=== PATIENT | male | born 1940 | race Caucasian/White ===

== ENCOUNTER 2024-09-29 08:28 | Day surgery (SDC) | payer OTHER, SELFPAY ==
[2024-09-23 15:21] VITALS: BMI 24.1
--- NOTE | 2024-09-25 15:24 | HO.ANESPROP2 ---
HPI - Anesthesia Eval Consult details Narrative: 84yo M for Right Cataract Extraction IOL Insertion No previous cataract on record PMFSH Past Medical History Medical History Mixed hyperlipidemia HTN (hypertension) Surgical History Surgical History Hx of tooth extraction Hx of right inguinal hernia repair Social History Social History Patient Tobacco Use Status: Former Tobacco user Tobacco use type: Cigarette Use of substances other than those prescribed or required for medical reasons: No Spiritual Healthcare Practices: unknown Jehovah'S Witness Healthcare Practices: unknown Cultural Healthcare Practices: unknown Advance Directives: No [place] Directives on File: No Nutrition Risks: Surgical patient >75years Meds Allergies Allergy/AdvReac Type Severity Reaction Status Date / Time No Known Allergies Allergy Verified 09/29/24 09:49 Home Medications ?Medication ?Instructions ?Recorded ?Confirmed ?Last Taken ?Type aspirin 81 mg tablet,delayed 81 mg PO DAILY 09/23/24 09/29/24 Unknown History release atorvastatin 10 mg tablet 10 mg PO BEDTIME 09/23/24 09/29/24 Unknown History clonidine HCl 0.1 mg tablet 0.1 mg PO DAILY 09/23/24 09/29/24 Unknown History hydrochlorothiazide 25 mg tablet 25 mg PO DAILY 09/23/24 09/29/24 09/28/24 History lisinopril 40 mg tablet 40 mg PO DAILY 09/23/24 09/29/24 09/28/24 History sildenafil 50 mg tablet 50 mg PO DAILY PRN Sexual Activity 09/23/24 09/29/24 Unknown History Exam Height,Weight and Vital Signs: Height 5 ft 8 in Weight 72 kg Assessment and Plan Assessment Anesthesia Assessment: Chart Reviewed
[2024-09-29] MEDS: Tetracaine HCl/PF 0.5% Oph Sol 4 ML DROPS 1 DROP EYE-RIGHT (09:39)
[2024-09-29] MEDS: Cyclopentolate 1 % Ophth Sol 2 ML DRPBTL 1 DROP EYE-RIGHT ×3 (09:40→09:56)
[2024-09-29] MEDS: Tropicamide 1 % Ophth Sol 3 ML BTL 1 DROP EYE-RIGHT ×3 (09:42→09:58)
[2024-09-29] MEDS: Ketorolac Tromethamine 0.5% Op 5 ML DROPS 1 DROP EYE-RIGHT ×3 (09:44→10:00)
[2024-09-29] MEDS: Phenylephrine HCL 2.5% Oph SoL 2 ML BOTTLE 1 DROP EYE-RIGHT ×3 (09:46→10:02)
[2024-09-29 09:51] VITALS: BP 170/92; PULSE 72; RESP 16; TEMP 36.3; O2SAT 97; BMI 24.3
[2024-09-29] MEDS: Lactated Ringers 500 ML 50 ML IV (10:02)
--- NOTE | 2024-09-29 10:15 | P.CONAN_ITS ---
[facility] Past Medical History Medical History Mixed hyperlipidemia HTN (hypertension) Functional capacity: independent ambulation Family History Family history of problems with anesthesia: No Surgical History Surgical History Hx of tooth extraction Hx of right inguinal hernia repair History of Problems with Anesthesia: No Social History Social History Patient Tobacco Use Status: Former Tobacco user Tobacco use type: Cigarette Use of substances other than those prescribed or required for medical reasons: No Spiritual Healthcare Practices: unknown [employer] Healthcare Practices: unknown Cultural Healthcare Practices: unknown [place]ives: [place] [place]ives on File: No Nutrition Risks: Surgical patient >75years Meds Allergies Allergy/AdvReac Type Severity Reaction Status Date / Time No Known Allergies Allergy Verified 09/29/24 09:49 Active Medications: Current Medications Lactated Ringer's (Lr) 500 mls @ 50 mls/hr IV .Q10H [place] Stop: 09/29/24 19:44 Last Admin: 09/29/24 10:02 Dose: 50 mls/hr Povidone Iodine (Povidone Iodine 5 % Ophth Soln 30 Ml Bottle) 1 appl EYE-RIGHT PREOP PRN PRN Reason: Pre-Op Surgical Implant Prophy Home Medications ?Medication ?Instructions ?Recorded ?Confirmed ?Last Taken ?Type aspirin 81 mg tablet,delayed 81 mg PO DAILY 09/23/24 09/29/24 Unknown History release atorvastatin 10 mg tablet 10 mg PO BEDTIME 09/23/24 09/29/24 Unknown History clonidine HCl 0.1 mg tablet 0.1 mg PO DAILY 09/23/24 09/29/24 Unknown History hydrochlorothiazide 25 mg tablet 25 mg PO DAILY 09/23/24 09/29/24 09/28/24 History lisinopril 40 mg tablet 40 mg PO DAILY 09/23/24 09/29/24 09/28/24 History sildenafil 50 mg tablet 50 mg PO DAILY PRN Sexual Activity 09/23/24 09/29/24 Unknown History Exam Height,Weight and Vital Signs: Height 5 ft 8 in Weight 72.575 kg Last Vital Signs Temp 97.4 F 09/29/24 09:51 Pulse 72 09/29/24 09:51 Resp 16 09/29/24 09:51 BP 170/92 H 09/29/24 09:51 Pulse Ox 97 09/29/24 09:51 O2 Del Method Room Air 09/29/24 09:51 Airway Mallampati Class: II TM Dist: >3cm Neck ROM: Full Heart: RRR Lungs: CTA Assessment and Plan Assessment Anesthesia Assessment: Anesthesia Plan Discussed and Chart Reviewed Final Anesthetic Review Family History of Problems with Anesthesia: No History of Problems with Anesthesia: No NPO: Yes ASA Class: II Final Preanesthetic Review: Meds/Allgs Chart Reviewed, Consent Obtained/Reviewed and Anes Risks/Benef Reviewed Patient Risk: Low Procedure Risk: Low Anesthetic Plan Anesthetic Plan: MAC: Disposition: Standard PACU
--- NOTE | 2024-09-29 10:59 | MHC.SHP ---
Pre-Procedural Eval Section A - 24 Hr Update-Section A only Date of Service: 09/29/24 The patient is an INPATIENT: No Changes since office visit: No Cold of Flu in the past 2 weeks, No New Medical Problems, No Changes in Medication and No Patient answered all questions The patient has been examined within 24 hours of the surgical procedure. The History & Physical has been completed within 30 days and I have reviewed it.: Yes Section B - Complete if H&P > 30 days Chief Complaint: Age-related nuclear cataract, right eye Allergies: Allergies Allergy/AdvReac Type Severity Reaction Status Date / Time No Known Allergies Allergy Verified 09/29/24 09:49 Plan Diagnosis/Plan: Unchanged I have reviewed the history and physical and performed a pertinent physical examination on my patient. No changes have occurred unless specified. Time Spent With Patient Time: Total time managing care of this patient today ____ minutes.
--- NOTE | 2024-09-29 11:00 | P.PCNO_ITS ---
Ophthalmology Procedure Procedure Date of Service: 09/29/24 Ophthalmology Viscoelastic: Healon Duet Dual Pack Pro Ophthalmology Lenses: IOL Acrysof MP - MA60AC (21.5) Procedure Notes: PREOPERATIVE DIAGNOSIS: Decreased visual acuity right eye secondary to cataract POSTOPERATIVE DIAGNOSIS: Same PROCEDURE: Right cataract extraction with intraocular lens insertion SURGEON: Clarke Hope M.D. ANESTHESIA: Topical/MAC ESTIMATED BLOOD LOSS: None COMPLICATIONS: None After obtaining informed consent, the patient was brought to the operating room suite and placed in the supine position. After adequate sedation per anesthesia, topical drops of Tetracaine were given to the right eye. The eye was then prepped and draped in the usual sterile fashion. The operating room microscope was then positioned over the operative eye and a lid speculum placed. A paracentesis was created. Viscoelastic was then instilled into the anterior chamber. A three plane incision was then created temporally, utilizing a 2.85 mm keratome. Capsulotomy forceps were then utilized to create a circular tear capsulotomy. Hydrodissection and hydrodelineation were carried out until adequate mobilization of the nucleus occurred. Phacoemulsification was then utilized to remove the dense central nu cleus followed by removal of the cortical material utilizing the automated aspiration irrigation unit. Viscoelastic was instilled into the posterior capsular bag followed by placement of a posterior chamber intraocular lens without difficulty. The residual Viscoelastic was then removed utilizing the automated IA machine. The wound was checked and found to be watertight. The patient tolerated the procedure well and the lid speculum was removed. Intracameral injection of Vigamox 0.1 mL followed by a subtenon injection of Kenalog-40 0.2 mL were administered. The patient will be seen in the a.m.
[2024-09-29 11:23] VITALS: BP 156/88; PULSE 82; RESP 16; TEMP 36.4; O2SAT 99
--- NOTE | 2024-09-29 11:38 | HO.POSTANES ---
Post Anesthesia Evaluation Post Anesthesia Evaluation Date of Service: 09/29/24 Vital Signs: Vital Signs Temp Pulse Resp BP Pulse Ox O2 Del Method 09/29/24 11:23 97.5 F 82 16 156/88 H 99 Room Air 09/29/24 09:51 97.4 F 72 16 170/92 H 97 Room Air Anesthesia: Monitored Mental Status: Awake Pain Control: Satisfactory Nausea/Vomiting: None Hydration: Adequate Anesthesia-Related Issues: No Anes. Related Issues
== END 2024-09-29 11:28 | disposition home or self-care (01) ==
PROVIDERS: PCP Internal Medicine; Visit Provider Ophthalmology
PROC: (CPT 66985; principal; 2024-09-29 11:00)
DX: H25.11 Age-related nuclear cataract, right eye (principal); H52.4 Presbyopia; H35.09 Other intraretinal microvascular abnormalities; H18.413 Arcus senilis, bilateral; H11.153 Pinguecula, bilateral; I10 Essential (primary) hypertension; E78.2 Mixed hyperlipidemia; Z79.899 Other long term (current) drug therapy; Z79.82 Long term (current) use of aspirin; Z87.891 Personal history of nicotine dependence
CPT/HCPCS: 66984; J2250; J3301; V2630

== ENCOUNTER 2024-10-13 09:24 | Day surgery (SDC) | payer OTHER, SELFPAY ==
[2024-09-23 15:25] VITALS: BMI 24.1
--- OUTSIDE RECORDS SUMMARY | 2024-09-26 14:19 | XMS_ITS | Encounter Summary ---
Author Organization [facility] [place] [address] Care Team Providers Care Timber Girdler Name Role Phone Antolin Barlow MD Primary Care Provider [phone] Reason for Referral * Consultation (Routine) - Authorized Specialty Diagnoses / Procedures Referred By Igor trevizo Referred To Contact Dermatology Diagnoses Skin lesion of right external ear Cornell Berger MD [address] [place] [address] Phone: tel: fax: [place] [address] Phone: tel: fax: Referral ID Status Reason Start Date Expiration Date Visits Requested Visits Authorized [id number] Authorized Specialty Services Required 09/12/2024 09/12/2025 1 1 Reason for Visit * Reason Comments Pre-op Exam Cataract surgey Encounter Details Date Type Department Care Team ([facility] Contact Info) Description 09/12/2024 10:00 AM EST Consult Adult Medicine [address] [phone] Cornell Berger MD [address] [place] [address] Preop cardiovascular exam (Primary Dx); Benign essential hypertension; Skin lesion of right external ear; Need for tetanus, diphtheria, and acellular pertussis (Tdap) vaccine Social History Tobacco Use Types Packs/Day Years Used Date Smoking Tobacco: Former Cigarettes Q uit: 07/30/1984 Smokeless Tobacco: Never Tobacco Cessation:Counseling Given: Not Answered Alcohol Use Standard Drinks/Week Comments Yes 0 (1 standard drink = 0.6 oz pur e alcohol) Sex and Gender Information Value Date Recorded Sex Assigned at Not on file Legal Sex Male 10:19 AM EST Gender Identity Not on file Sexual Orientation Not on file documented as of this encounter Last Filed Vital Signs Vital Sign Reading Time Taken Comments Blood Pressure 139/67 09/12/2024 9:53 AM EST Pulse 84 09/12/2024 9:53 AM EST Temperature 36.5 ??C (97.7 ??F) 09/12/2024 9:53 AM ES T Respiratory Rate 14 09/12/2024 9:53 AM EST Oxygen Saturation - - Inhaled Oxygen Concentration - - Weight 72 kg (158 lb 12.8 oz) 09/12/2024 9:53 AM EST Height 172.7 cm (5' 8 ) 09/12/2024 9:53 AM EST Body Mass Index 24.15 09/12/2024 9:53 AM EST documented in this encounter Patient Instructions * Attachments The following attachments cannot be sent through Care Everywhere. * ERAS: Enhanced Recovery After Surgery: After Surgery: General Info (Nicaraguan) documented in this encounter Ordered Prescriptions Prescription Sig Dispense Quantity Refills Last Filled Start Date End Date lisinopril (PRINIVIL,ZESTRIL) 40 mg tabletIndications: Benign essential hypertension Take 1 tablet (40 mg total) by mouth 1 (one) time each day. 90 each 1 09/12/2024 03/11/2025 documented in this encounter Progress Notes * Cornell Berger MD - 09/12/2024 10:00 AM ESTAssociated Problem(s): Benign essential hypertension BP is stable at 139/67. His goal BP is < 150/90 given lack of CKD or CAD Continue clonidine 0.1 mg, lisinopril 40 mg and hydrochlorothiazide 25 mg. Lisinopril use is likely causing a mild intermittent dry cough but he does not want to switch to a different medication at this time Orders: lisinopril (PRINIVIL,ZESTRIL) 40 mg tablet; Take 1 tablet (40 mg total) by mouth 1 (one) time each day. * Cornell Berger MD - 09/12/2024 10:00 AM EST Images from the original note were not included. Patient Education High Blood Pressure: Care Instructions Overview It's normal for blood pressure to go up and down throughout the day. But if it stays up, you have high blood pressure. Another name for high blood pressure is hypertension. For diagnosis, the top number may be 130 to 140 or higher. The bottom number may be 80 to 90 or higher. Despite what a lot of people think, high blood pressure usually doesn't cause headaches or make youfeel dizzy or lightheaded. It usually has no symptoms. But it does increase your risk of stroke, heart attack, and other problems. You and your doctor will talk about your risks of these problems based on your blood pressure. Your doctor will give you a goal for your blood pressure. Your goal will be based on your health and your age. Lifestyle changes, such as eating healthy and being active, are always important to help lower blood pressure. You might also take medicine to reach your blood pressure goal. Follow-up care is a martinez part of your treatment and safety. Be sure to make and go to all appointments, and call your doctor if you are having problems. It's also a good idea to know your test resultsand keep a list of the medicines you take. How can you care for yourself at home? Medical treatment If you stop taking your medicine, your blood pressure will go back up. You may take one or more types of medicine to lower your blood pressure. Be safe with medicines. Take your medicine exactly as prescribed. Call your doctor if you think you are having a problem with your medicine. Talk to your doctor before you start taking aspirin every day. Aspirin can help certain people lower their risk of a heart attack or stroke. But taking aspirin isn't right for everyone, because it can cause serious bleeding. See your doctor regularly. You may need to see the doctor more often at first or until your blood pressure comes down. If you are taking blood pressure medicine, talk to your doctor before you take decongestants or anti-inflammatory medicine, such as ibuprofen. Some of these medicines can raise blood pressure. Learn how to check your blood pressure at home. Lifestyle changes Stay at a healthy weight. This is especially important if you put on weight around the waist. Losing even 10 pounds can help you lower your blood pressure. If your doctor recommends it, get more exercise. Walking is a good choice. Bit by bit, increase theamount you walk every day. Try for at least 30 minutes on most days of the week. You also may want to swim, bike, or do other activities. Avoid or limit alcohol. Talk to your doctor about whether you can drink any alcohol. Try to limit how much sodium you eat to less than 2,300 milligrams (mg) a day. Your doctor may ask you to try to eat less than 1,500 mg a day. Eat plenty of fruits (such as bananas and oranges), vegetables, legumes, whole grains, and low-fat dairy products. Lower the amount of saturated fat in your diet. Saturated fat is found in animal products such as milk, cheese, and meat. Limiting these foods may help you lose weight and also lower your risk for heart disease. Do not smoke. Smoking increases your risk for heart attack and stroke. If you need help quitting, talk to your doctor about stop-smoking programs and medicines. These can increase your chances of quitting for good. When should you call for help? Call 911 anytime you think you may need emergency care. This may mean having symptoms that suggest that your blood pressure is causing a serious heart or blood vessel problem. Your blood pressure maybe over 180/120. For example, call 911 if: You have symptoms of a heart attack. These may include: Chest pain or pressure, or a strange feeling in the chest. Sweating. Shortness of breath. Nausea or vomiting. Pain, pressure, or a strange feeling in the back, neck, jaw, or upper belly or in one or both shoulders or arms. Lightheadedness or sudden weakness. A fast or irregular heartbeat. You have symptoms of a stroke. These may include: Sudden numbness, tingling, weakness, or loss of movement in your face, arm, or leg, especially on only one side of your body. Sudden vision changes. Sudden trouble speaking. Sudden confusion or trouble understanding simple statements. Sudden problems with walking or balance. A sudden, severe headache that is different from past headaches. You have severe back or belly pain. Do not wait until your blood pressure comes down on its own. Get help right away. Call your doctor now or seek immediate care if: Your blood pressure is much higher than normal (such as 180/120 or higher), but you don't have symptoms. You think high blood pressure is causing symptoms, such as: Severe headache. Blurry vision. Watch closely for changes in your health, and be sure to contact your doctor if: Your blood pressure measures higher than your doctor recommends at least 2 times. That means the top number is higher or the bottom number is higher, or both. You think you may be having side effects from your blood pressure medicine. Where can you learn more? Scan the [employer] Mobile code or Go to [email or web address] Enter X567 in the search box to learn more about High Blood Pressure: Care Instructions. Current as of: May 22, 2023 Content Version: 14.2 ?? 2023 [facility] [employer]. Care instructions adapted under license by your healthcare professional. If you have questions about a medical condition or this instruction, always ask your healthcare professional. [employer] disclaims any warranty or liability for your use of this information. * Kristi Yeboah MA - 09/12/2024 10:00 AM EST Have you fallen in the past year? no. Are you worried about falling? no. . Depression Screening Will the patient answer the depression risk questions?: Yes Over the last 2 weeks, how often have you been bothered by little interest or pleasure in doing things?: Not at all Over the last 2 weeks, how often have you been bothered by feeling down, depressed, or hopeless?: Not at all Depression Risk: 0 * Cornell Berger MD - 09/12/2024 10:00 AM EST Images from the original note were not included. Pre-Operative Note Subjective Michael Lagunas is a 84 y.o. male presenting for Pre-Operative Visit. Surgery/Procedure: cataracts extraction Surgeon: Dr. Clarke Barth Planned anesthesia is Unknown Date of procedure: 09/29/2024 and 10/13/2024 respectively Location of procedure: High Risk Pre-Operative Medical Conditions: As detailed in the problem list and diagnosis' at visittoday. History of DVT/PE in the past []Yes [x]No History of VRE, Hepatitis C, MRSA []Yes [x]No Risk Factors: [x] No []Yes Asthma [x] No []Yes Coronary Artery Disease [x] No []Yes Renal Insufficiency [x] No []Yes Diabetes Mellitus Bleeding Risk: [x] No []Yes History of Severe Bleeding or Easy Bruising [x] No []Yes Difficulty with Bleeding after Loss of Teeth or Dental Extractions [x] No []Yes Difficulty with Bleeding after previous Surgery Medication Review: [] Not Taking [x] Taking Aspirin [x] Not Taking [] Taking Blood Thinners Anesthesia Risk: [x] No []Yes History of Problems with Anesthesia [x] No []Yes History of Sleep Apnea Functional capacity [] Can take care of self, such as eat, dress, or use the toilet (1 MET) [] Can walk up a flight of steps or a hill or walk on level ground at 3 to 4 mph (4 METs) [x] Can do heavy work around the house, such as scrubbing floors or lifting or moving heavy furniture, or climb two flights of stairs (between 4 and 10 METs) [] Can participate in strenuous sports such as swimming, singles tennis, football, basketball, and skiing (>10 METs) This is my first visit with patient. Medications and chronic medical problems are as detailed in the note Hypertension: continues on clonidine 0.1 mg, lisinopril 40 mg and hydrochlorothiazide 25 mg. Notes intermittent dry cough for about 5 or 6 years likely related to the lisinopril. He was offered to switch to a different medication (losartan) but declined at this time. His blood pressure is stable at 139/70. The patient has a history of: [] easy bruising [] easy bleeding [] bleeding into joints [] bleeding into muscles [] frequent nosebleeds [] bleeding with the loss of teeth or dental extractions [] bleeding with previous surgery or injury [] family history of bleeding disorders [x] no history of bleeding problems The patient has: [] coronary artery disease [] history of a recent myocardial infarction [] unstable angina [] history of a drug eluding cardiac stent [] CHF [] cardiac arrhythmias [] valvular heart disease [] history of CVA [] renal failure [] asthma [] sleep apnea [] diabetes that requires insulin to treat [x] no significant medical history The patient has: [] a defibrillator/pacemaker [] a pain pump [x] no implantable device The patient can: [] take care of self, such as eat, dress, or use the toilet (1 MET) [] walk up a flight of steps or a hill or walk on level ground at 3 to 4 mph (4 METs) [x] do heavy work around the house such as scrubbing floors or lifting or moving heavy furniture orclimb two flights of stairs or walk four blocks (between 4 and 10 METs) [] participate in strenuous sports such as swimming, singles tennis, football, basketball, and skiing (>10 METs) The patient has: [] a history of difficulty with anesthesia [] a history of excessive postop nausea and vomiting [] a history of sensitivity to narcotics [] a history of sleep apnea [] a history of family history of malignant hyperthermia or adverse reaction to anesthesia [x] no history of difficulty with anesthesia, excessive postop nausea and vomiting, sensitivity to narcotics, sleep apnea or family history of malignant hyperthermia or sensitivity to anesthesia. Comprehensive Medical and Social History: Patient Active Problem List Diagnosis Benign essential hypertension Erectile dysfunction Mixed hyperlipidemia Right inguinal hernia No Known Allergies Current Outpatient Medications Medication Instructions aspirin 81 mg EC tablet Take 81 mg by mouth daily. atorvastatin (LIPITOR) 10 mg, oral, Nightly cloNIDine (CATAPRES) 0.1 mg, oral, Daily hydroCHLOROthiazide (HYDRODIURIL) 25 mg, oral, Daily lisinopril (PRINIVIL,ZESTRIL) 40 mg, oral, Daily sildenafiL (VIAGRA) 50 mg tablet Take 1 tab by mouth one hour prior to sexual activity . Only take one tablet in 24 hours Past Medical History: Diagnosis Date Essential hypertension, benign 11/08/2005 DX:Essential hypertension, benign Mixed hyperlipidemia 11/08/2005 DX:Mixed hyperlipidemia Past Surgical History: Procedure Laterality Date HERNIA REPAIR Right 09/18/2013 PROCEDURE: HISTORICAL HERNIA REPAIR/ING MULTIPLE TOOTH EXTRACTIONS PROCEDURE: HISTORICAL DENTAL EXTRACTION Social History Socioeconomic History Marital status: Spouse name: None Number of children: None Years of education: None Highest education level: None Occupational History None Tobacco Use Smoking status: Former Current packs/day: 0.00 Types: Cigarettes Quit date: 07/30/1984 Years since quittin.1 Smokeless tobacco: Never Substance and Sexual Activity Alcohol use: Yes Drug use: No Sexual activity: None Other Topics Concern None Social History Narrative None Family History Problem Relation Name Age of Onset Hypertension Mother 2006, age 92 Other (Other: coronary bypass) Father , age 88 Cataracts Sister Blindness Neg Hx Glaucoma Neg Hx Macular degeneration Neg Hx Strabismus Neg Hx Immunization History Administered Date(s) Administered Influenza trivalent, 0.5mL (Fluad) 65yo and older 05/10/2016, 05/15/2018, 05/16/2019, 04/26/2021, 04/18/2022 Influenza trivalent, 0.5mL, preservative free (Fluarix; FluLaval; Fluzone) ages 6mo and older (Afluria) 3 years and older 05/30/2007, 05/15/2008, 05/03/2011, 05/06/2012, 05/30/2013, 06/21/2014, 05/06/2015 Moderna SARS-CoV-2 COVID-19, mRNA, LNP-S, preservative free 09/29/2020, 10/29/2020, 07/19/2021 Pneumococcal conjugate 13 valent (Prevnar 13, PCV13) 2mo and older 11/05/2015 Pneumococcal polysaccharide 23 valent (Pneumovax 23) 2yo and older 05/30/2007 Td Tetanus diptheria (Tdvax) 7yo and older 10/29/2007 Tdap Tetanus diptheria acellular pertussis (Boostrix; Adacel) 7yo and older 11/03/2013 Zoster Live 05/05/2013 Review of Systems Respiratory: Negative for apnea, shortness of breath and wheezing. Cardiovascular: Negative for chest pain and leg swelling. Gastrointestinal: Negative for abdominal pain, nausea and vomiting. Neurological: Negative for dizziness. IMAGING/LABORATORY: EKG: No results found for this or any previous visit (from the past 4464 hours). Objective BP 139/67 Pulse 84 Temp 36.5 ??C (97.7 ??F) (Temporal) Resp 14 Ht 1.727 m (68 ) Wt 72 kg (158 lb 12.8 oz) BMI 24.15 kg/m?? Physical Exam Constitutional: General: He is not in acute distress. Appearance: Normal appearance. He is normal weight. HENT: Head: Normocephalic and atraumatic. Nose: Nose normal. Mouth/Throat: Mouth: Mucous membranes are moist. Pharynx: No oropharyngeal exudate or posterior oropharyngeal erythema. Eyes: Extraocular Movements: Extraocular movements intact. Conjunctiva/sclera: Conjunctivae normal. Pupils: Pupils are equal, round, and reactive to light. Cardiovascular: Rate and Rhythm: Normal rate and regular rhythm. Pulses: Normal pulses. Heart sounds: Normal heart sounds. No murmur heard. Pulmonary: Effort: Pulmonary effort is normal. No respiratory distress. Breath sounds: Normal breath sounds. Abdominal: Palpations: Abdomen is soft. Tenderness: There is no abdominal tenderness. Musculoskeletal: Cervical back: Neck supple. Right lower leg: No edema. Left lower leg: No edema. Lymphadenopathy: Cervical: No cervical adenopathy. Skin: Comments: White, scaly small macule located on the right external ear Neurological: General: No focal deficit present. Mental Status: He is alert and oriented to person, place, and time. Gait: Gait normal. Psychiatric: Mood and Affect: Mood normal. Behavior: Behavior normal. Assessment & Plan Preop cardiovascular exam Revised Cardiac Risk Index (RCRI) [] The patient is having a high-risk type of surgery (examples include suprainguinal vascular, openintraperitoneal or intrathoracic). [] They do have a history of ischemic heart disease (history of IN or a positive exercise test, current complaint of chest pain considered to be secondary to myocardial ischemia, use of nitrate therapy, or ECG with pathological Q waves). [] They do have a history of CHF (Pulmonary edema, bilateral rales or S3 gallop; paroxysmal nocturnal dyspnea; chest x-ray (CXR) showing pulmonary vascular redistribution). [] They do have a history of cerebrovascular disease(Prior transient ischemic attack (TIA) or stroke). [] They do have diabetes mellitus requiring treatment with insulin. [] They do have a preoperative serum creatinine >2.0 mg/dL. [x] No risk factors The patient has a RCRI score of 0, indicative of a 3.9% risk of major cardiac event. The patient was advised to take medications as prescribed He has no contraindications to low risk cataract surgery Benign essential hypertension BP is stable at 139/67. His goal BP is < 150/90 given lack of CKD or CAD Continue clonidine 0.1 mg, lisinopril 40 mg and hydrochlorothiazide 25 mg. Lisinopril use is likely causing a mild intermittent dry cough but he does not want to switch to a different medication at this time Orders: lisinopril (PRINIVIL,ZESTRIL) 40 mg tablet; Take 1 tablet (40 mg total) by mouth 1 (one) time each day. 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 States he has had lesion of the ear frozen before. This was about 2 years ago Orders: Ambulatory referral to Dermatology; Future Need for tetanus, diphtheria, and acellular pertussis (Tdap) vaccine Orders: Tdap Tetanus diptheria acellular pertussis (Boostrix; Adacel) 7yo and older Advised to complete pending blood work ordered by care team on 09/02/24 at visit Advised to obtain updated COVID-vaccine and shingles vaccine at his local pharmacy. Cornell Berger MD ADULT MEDICINE [address] [phone] * Kristi Yeboah MA - 09/12/2024 10:00 AM EST The patient acknowledges that they will be receiving the Tdap (Brand Name Boostrix or Adacel) (Tetanus/Diptheria/Pertussis) vaccine: yes Immunization tab reviewed: It has been at least 9 years since last Tdap vaccine administration. Ifless than 9 years, provider notified. yes Exception: patients should receive a Tdap with each , preferably during the 3rd trimester. Denies allergy or reaction to previous Tetanus, Diptheria or pertussis vaccination: yes Denies history of Guillain [place] Syndrome.or any type of seizure disorder. yes Patient made aware that they may experience pain/swelling at the site after receiving a Tetanus or Diptheria vaccine. yes Acknowledges reviewing the VIS for Tdap vaccine (copy made available): yes Denies moderate or severe illness or fever of >100 degrees F: yes Patient agrees to wait in the office for 20 minutes after receiving the injection: { yes Tdap vaccine administered IM. See Imm/Inj tab Electronically signed by: Kristi Yeboah MA 09/12/2024 10:23 AM EST documented in this encounter Plan of Treatment Upcoming Encounters Date Type Department Care Team (Late st Contact Info) Description 10/07/2024 10:00 AM EDT Consult Adult Medicine [address] [phone] Antolin Barlow MD [address] [place] [phone] 03/31/2025 11:30 AM EDT Office Visit Adult Medicine [address] [phone] Antolin Barlow MD [address] [place] [id number] Scheduled Referrals Name Type Priority Associated Diagnoses Order Schedule Ambulatory referral to Dermatology Outpatient Referral Routine Skin lesion of right external ear 1 Occurrences starting 09/12/2024 until 09/12/2025 documented as of this encounter Visit Diagnoses Diagnosis Preop cardiovascular exam- Primary Pre-operative cardiovascular examination Benign essential hypertension Essential hypertension, benign Skin lesion of right external ear Need for tetanus, diphtheria, and acellular pertussis (Tdap) vaccine documented in this encounter Discontinued Medications Medication Sig Discontinue Reason Start Date End Da te lisinopril (PRINIVIL,ZESTRIL) 40 mg tablet Take 1 tablet (40 mg total) by mouth 1 (one) time each day. Reorder 09/02/2024 09/12/2024 documented as of this encounter Orders Immunization/Injection Count Last Ordered Date First Ordered Date TDAP TETANUS DIPTHERIA ACELL ULAR PERTUSSIS (BOOSTRIX; ADACEL) 7YO AND OLDER 1 09/12/2024 documented in this encounter Additional Health Concerns Assessment Noted Time PHQ-9 Depression Total Score: 0 09/12/19 25 9:52 AM EST documented as of this encounter Care Teams Timber Girdler Relationship Specialty Start Date End Date Antolin Barlow MD [address] [place] [id number] PCP - General Internal Medicine 04/23/20 documented as of this encounter
--- OUTSIDE RECORDS SUMMARY | 2024-09-26 14:19 | XMS_ITS | Clinical Summary ---
Author Organization [facility] Address [address] [place] [phone] Phone Care Team Providers Care Project Manager Industrial Name Role Phone Antolin Barlow MD Primary Care Provider [phone] Allergies No known active allergies Medications sildenafiL (VIAGRA) 50 mg tablet Take 1 tab by mouth one hour prior to sexual activity . Only take one tablet in 24 hours 07/13/20 23 Active aspirin 81 mg EC tablet Take 81 mg by mouth daily. Active hydroCHLOROthiaz joanie (HYDRODIURIL) 25 mg tablet Take 1 tablet (25 mg total) by mouth 1 (one) time each day. 90 tablet 1 09/02/19 25 Active cloNIDine (CATAPRES) 0.1 mg tablet Take 1 tablet (0.1 mg total) by mouth 1 (one) time each day. 90 tablet 1 09/02/19 25 Active atorvastatin (LIPITOR) 10 mg tablet Take 1 tablet (10 mg total) by mouth at bedtime. 90 tablet 1 09/02/19 25 Active lisinopril (PRINIVIL,ZESTRI L) 40 mg tabletIndication s:Benign essential hypertension Take 1 tablet (40 mg total) by mouth 1 (one) time each day. 90 each 1 09/12/19 25 025 Active atorvastatin (LIPITOR) 10 mg tablet Take 1 Tablet by mouth at bedtime. 01/22/20 24 025 Discontinued(Re order) hydroCHLOROthiaz joanie (HYDRODIURIL) 25 mg tablet Take 1 Tablet by mouth daily. 01/22/20 24 025 Discontinued(Re order) cloNIDine (CATAPRES) 0.1 mg tablet Take 1 Tablet by mouth daily. 01/22/20 24 025 Discontinued(Re order) lisinopriL (PRINIVIL,ZESTRI L) 30 mg tablet Take 1 tablet (30 mg total) by mouth 1 (one) time each day. 30 tablet 08/06/19 25 025 Discontinued lisinopril (PRINIVIL,ZESTRI L) 40 mg tablet Take 1 tablet (40 mg total) by mouth 1 (one) time each day. 30 each 1 09/02/19 25 025 Discontinued(Re order) Active Problems Problem Noted Date Diagnosed Date Erectile dysfunction 11/12/2017 Right inguinal hernia 05/26/2013 Benign essential hypertension 11/08/2005 Assessment & Plan (09/12/2024 10:32 AM EST): BP is stable at 139/67. His goal [...] by mouth 1 (one) time each day. Mixed hyperlipidemia 11/08/2005 Encounters Date Type Department Care Team Description 09/12/2024 10:00 AM EST Consult Adult Medicine [address] [phone] Cornell Berger MD Preop cardiovascular exam (Primary Dx); Benign essential hypertension; Skin lesion of right external ear; Need for tetanus, diphtheria, and acellular pertussis (Tdap) vaccine 09/09/2024 Telephone Adult Medicine [address] [phone] Antolin Barlow MD Pre-op Visit (Pre Op Reschedule) 09/02/2024 11:00 AM EST Office Visit Adult Medicine [address] [phone] Ella Garcia PA Benign essential hypertension (Primary Dx); Mixed hyperlipidemia 08/22/2024 Telephone Adult Medicine [address] [phone] Antolin Barlow MD Referral (Ophthalmology ) 07/02/2024 Telephone Adult Medicine [address] [phone] Antolin Barlow MD reff from Last 3 Months Immunizations Name Administration Dates Next Due Influenza trivalent, 0.5mL ( Fluad) 65yo and older 04/18/2022,04/26/2021,05/16/2019,05/15,05/10/2016 Influenza trivalent, 0.5mL, preservative free (Fluarix; FluLaval; Fluzone) ages 6mo and older (Afluria) 3 years and older 05/06/2015,06/21/2014,05/30/2013,05/06,05/03/2011,05/15/2008,05/30/2007 Pneumococcal conjugate 13 va lent (Prevnar 13, PCV13) 2mo and older 11/05/2015 Pneumococcal polysaccharide 23 valent (Pneumovax 23) 2yo and older 05/30/2007 Td Tetanus diptheria (Tdvax) 7yo and older 10/29/2007 Tdap Tetanus diptheria acell ular pertussis (Boostrix; Adacel) 7yo and older 09/12/2024,11/03/2013 Zoster Live 05/05/2013 Surgical History Surgery Date Site/Laterality Comments MULTIPLE TOOTH EXTRACTIONS PROCEDURE: HISTORICAL DENTAL EXTRACTION HERNIA REPAIR 09/18/2013 Right PROCEDURE: HISTORICAL HERNIA REPAIR/ING Medical History Medical History Date Comments Mixed hyperlipidemia 11/08/2005 DX:Mixed hy perlipidemia Essential hypertension, benign 11/08/2005 D X:Essential hypertension, benign Family History Medical History Relation Name Comments Other: coronary bypass Father decea sed, age 88 Hypertension Mother 2006, age 92 Cataracts Sister Blindness Neg Hx Glaucoma Neg Hx Macular degeneration Neg Hx Strabismus Neg Hx Relation Name Status Comments Father Mother Sister Social History Tobacco Use Types Packs/Day Years [...] on file Sexual Orientation Not on file Obstetrics History Last Filed Vital Signs Vital Sign Reading Time Taken Comments Blood Pressure 139/67 09/12/2024 9:53 AM EST Pulse 84 09/12/2024 9:53 AM EST Temperature 36.5 ??C (97.7 ??F) 09/12/2024 9:53 AM ES T Respiratory Rate 14 09/12/2024 9:53 AM EST Oxygen Saturation 98% 09/02/2024 10:53 AM EST Inhaled Oxygen Concentration - - Weight 72 kg (158 lb 12.8 oz) 09/12/2024 9:53 AM EST Height 172.7 cm (5' 8 ) 09/12/2024 9:53 AM EST Body Mass Index 24.15 09/12/2024 9:53 AM EST Plan of Treatment Upcoming Encounters Date Type Department Care Team (Late st Contact Info) Description 10/07/2024 10:00 AM EDT Consult Adult Medicine [address] [phone] Antolin Barlow MD [address] [place] [phone] 03/31/2025 11:30 AM EDT Office Visit Adult Medicine [address] [phone] Antolin Barlow MD [address] [place] [address] [phone] Health Maintenance Due Date Last Done Comments IPV Vaccines (2 of 3 - Adult catch-up series) 08/31/1961 08/03/1963 Zoster Vaccines (2 of 3) 06/30/2013 05/05/2013 Medicare Annual Wellness Visit 07/08/2022 Social Influencers of Health Screening 07/08/2022 COVID-19 Vaccine ( season) 2024 07/19/2021, 10/29/2020, 09/29/2020 Depression Screening 09/12/2025 09/12/2024 Falls Risk Assessment 09/12/2025 09/12/2024 Hypertension/CHF/CAD Annual BMP Blood Test 09/15/2025 09/15/2024, 01/23/2024 Cholesterol Screening (Lipid Panel) 09/15/2029 09/15/2024, 01/23/2024 DTaP,Tdap,and Td Vaccines (5 - Td or Tdap) 09/12/2034 09/12/2024, 11/03/2013, 10/29/2007, Additional history exists Hepatitis A Vaccines Aged Out 10/31/1997, 04/06/19 97 No longer eligible based on patient's age to complete this topic MMR Vaccines Aged Out 06/22/1998 No longer eligi ble based on patient's age to complete this topic Pneumococcal Vaccine: 50+ Years Completed 11/05/2015, 05/30/2007 RSV Immunization Patients 60+ Years Old Completed 08/07/2023 Influenza Vaccine Completed 05/02/2024, , 04/18/2022, Additional history exists HIB Vaccines Aged Out No longer eligi ble based on patient's age to complete this topic HPV Vaccines Aged Out No longer eligi ble based on patient's age to complete this topic Hepatitis B Vaccines Aged Out No long er eligible based on patient's age to complete this topic Meningococcal ACWY Vaccine Aged Out N o longer eligible based on patient's age to complete this topic Meningococcal B Vacine Aged Out No lo nger eligible based on patient's age to complete this topic RSV Immunization Patients Under 20 months Aged Out No longer eligible based on patient's age to complete this topic Varicella Vaccines Aged Out No longer eligible based on patient's age to complete this topic Procedures Procedure Name Priority Date/Time Associated Diagnosis Comments LIPID PANEL WITH REFLEX TO DIRECT LDL Routine 09/15/2024 9:59 AM EST Mixed hyperlipidemia BASIC METABOLIC PANEL Routine 09/15/2024 9:59 AM EST Benign essential hypertension Mixed hyperlipidemia from Last 3 Months Results * Lipid panel with reflex to direct LDL (09/15/2024 9:59 AM EST) Cholesterol 142 0 - 200 mg/dL LAB CHEMISTRY METHOD 09/15/2024 12:33 PM EST [facility] Triglycerides 61 0 - 150 mg/dL LAB CHEMISTRY METHOD 09/15/2024 12:33 PM EST [facility] HDL 57 >=40 mg/dL LAB CHEMISTRY METHOD 09/15/2024 12:33 PM EST [facility] LDL Calculated 73 0 - 100 mg/dL LAB CHEMISTRY METHOD 09/15/2024 12:33 PM [facility] VLDL Cholesterol Dave 12.2 mg/dL LAB CHEMISTRY METHOD 09/15/2024 12:33 PM [facility] Non HDL Chol. (LDL+VLDL) 85 <145 mg/dL LAB CHEMISTRY METHOD 09/15/2024 12:33 PM EST [facility] Chol/HDL Ratio 2.5 0.0 - 4.4 LAB CHEMISTRY METHOD 09/15/2024 12:33 PM [facility] Blood Venous blood specimen / Unknown Venipuncture / Unknown 09/15/2024 9:59 AM EST 09/15/2024 9:59 AM EST us Ella VALADEZ LAB BLOOD ORDERABLES Fi nal Result [facility] [address] [place] [address], [place] [phone] * Basic metabolic panel (09/15/2024 9:59 AM EST) Sodium 133 133 - 145 mmol/L LAB CHEMISTRY METHOD 09/15/2024 12:33 PM [facility] Potassium 4.5 3.5 - 5.5 mmol/L LAB CHEMISTRY METHOD 09/15/2024 12:33 PM [facility] Chloride 98 96 - 110 mmol/L LAB CHEMISTRY METHOD 09/15/2024 12:33 PM [facility] CO2 31 21 - 32 mmol/L LAB CHEMISTRY METHOD 09/15/2024 12:33 PM [facility] Anion Gap 4 3 - 11 LAB CHEMISTRY METHOD 09/15/2024 12:33 PM [facility] Glucose 91 70 - 100 mg/dL LAB CHEMISTRY METHOD 09/15/2024 12:33 PM [facility] BUN 15 5 - 25 mg/dL LAB CHEMISTRY METHOD 09/15/2024 12:33 PM [facility] Creatinine 0.88 0.70 - 1.30 mg/dL LAB CHEMISTRY METHOD 09/15/2024 12:33 PM [facility] eGFR 86 >=60 mL/min/1. 73m2 LAB CHEMISTRY METHOD 09/15/2024 12:33 PM [facility] Comment:Calculation based on the??Chronic Kidney Disease Epidemiology Collaboration (CKD-EPI) equation refit??without adjustment for race. BUN/Creatinine Ratio 17.0 LAB CHEMISTRY METHOD 09/15/2024 12:33 PM [facility] Calcium 9.6 8.5 - 10.5 mg/dL LAB CHEMISTRY METHOD 09/15/2024 12:33 PM [facility] Blood Venous blood specimen / Unknown Venipuncture / Unknown 09/15/2024 9:59 AM EST 09/15/2024 9:59 AM EST us Ella VALADEZ LAB BLOOD ORDERABLES Fi nal Result [facility] [address] [place] [address], [place] [phone] from Last 3 Months Insurance MEDICARE [facility] Care Teams Project Manager Industrial Relationship Specialty Start Date End Date Antolin Barlow MD [address] [place] [id number] PCP - General Internal Medicine 04/23/20
--- OUTSIDE RECORDS SUMMARY | 2024-09-26 14:19 | XMS_ITS | Encounter Summary ---
Author Organization [facility] [place] [address] Care Team Providers Care Route Driver Salesperson Name Role Phone Antolin Barlow MD Primary Care Provider [phone] Reason for Visit * Reason Onset Date Comments Pre-op Visit 09/09/2024 Pre Op Reschedul e Encounter Details Date Type Department Care Team ([facility] Contact Info) Description 09/09/2024 Telephone Adult Medicine [address] [phone] Antolin Barlow MD [address] [place] [phone] Pre-op Visit (Pre Op Reschedule) Social History Tobacco Use Types Packs/Day Years Used Date Smoking Tobacco: Former Cigarettes Q uit: 07/30/1984 Smokeless Tobacco: Never Alcohol Use Standard Drinks/Week Comments Yes 0 (1 standard drink = 0.6 oz pur e alcohol) Sex and Gender Information Value Date Recorded Sex Assigned at Not on file Legal Sex Male 10:19 AM EST Gender Identity Not on file Sexual Orientation Not on file documented as of this encounter Progress Notes * Werner Kwon - 09/09/2024 1:53 PM EST Patient needs his Pre-Op appointment on 09/24/24 to be rescheduled due to the Provider being out of the Office documented in this encounter Plan of Treatment Upcoming Encounters Date Type Department Care Team (Late st Contact Info) Description 10/07/2024 10:00 AM EDT Consult Adult Medicine [address] [phone] Antolin Barlow MD [address] [place] [address] 03/31/2025 11:30 AM EDT Office Visit Adult Medicine [address] [phone] Antolin Barlow MD [address] [place] [address] documented as of this encounter Visit Diagnoses Not on filedocumented in this encounter Care Teams Route Driver Salesperson Relationship Specialty Start Date End Date Antolin Barlow MD [address] [place] [phone] PCP - General Internal Medicine 04/23/20 documented as of this encounter
--- OUTSIDE RECORDS SUMMARY | 2024-09-26 14:19 | XMS_ITS | Encounter Summary ---
Author Organization [facility] [place] [address] Care Team Providers Care Sales Service Supervisor Name Role Phone Antolin Barlow MD Primary Care Provider [phone] Reason for Visit * Reason Comments med review Hypertension Encounter Details Date Type Department Care Team ([facility] st Contact Info) Description 09/02/2024 11:00 AM EST Office Visit Adult Medicine [address] [phone] Ella Garcia PA [address] [place] [phone] Benign essential hypertension (Primary Dx); Mixed hyperlipidemia Social History Tobacco Use Types Packs/Day Years [...] Sign Reading Time Taken Comments Blood Pressure 164/82 09/02/2024 10:59 AM EST a Pulse 80 09/02/2024 10:53 AM EST Temperature 36.3 ??C (97.4 ??F) 09/02/2024 10:[address] Respiratory Rate - - Oxygen Saturation 98% 09/02/2024 10:53 AM EST Inhaled Oxygen Concentration - - Weight 74.4 kg (164 lb 1.6 oz) 09/02/2024 10:53 AM EST Height 170.2 cm (5' 7.01 ) 09/02/2024 10:[address] Body Mass Index 25.7 09/02/2024 10:53 AM EST documented in this encounter Ordered Prescriptions Prescription Sig Dispense Quantity Refills Last Filled Start Date End Date atorvastatin (LIPITOR) 10 mg tablet Take 1 tablet (10 mg total) by mouth at bedtime. 90 tablet 1 09/02/2024 cloNIDine (CATAPRES) 0.1 mg tablet Take 1 tablet (0.1 mg total) by mouth 1 (one) time each day. 90 tablet 1 09/02/2024 hydroCHLOROthiazid e (HYDRODIURIL) 25 mg tablet Take 1 tablet (25 mg total) by mouth 1 (one) time each day. 90 tablet 1 09/02/2024 lisinopril (PRINIVIL,ZESTRIL) 40 mg tablet Take 1 tablet (40 mg total) by mouth 1 (one) time each day. 30 each 1 09/02/2024 09/12/2024 documented in this encounter Progress Notes * RORY Lowe - 09/02/2024 11:00 AM EST CHIEF COMPLAINT: med review and Hypertension IDENTIFIER: Michael Lagunas is a 84 y.o. old male. HPI: Patient is a 84-year-old male who presents tot he office today for mediction review. Hypertension: Blood pressure in the office today is elevated at 164/76 with 5- minute average at 164/82 and manual repeat at the end of visit at 160/80. The patient is on clonidine 0.1 mg, lisinopril 30 mg and hydrochlorothiazide 25 mg. Hyperlipidemia: Lipid panel from 12/2023 shows LDL at 111. Patient is on atorvastatin 10 mg nightly. ROS: GENERAL: No malaise, significant weight loss or fever RESPIRATORY: No cough, wheezing or shortness of breath CARDIOVASCULAR: No chest pain, leg swelling or palpitations NEURO: No persistent headache, syncope, seizures, weakness or numbness PAST MEDICAL HISTORY: Patient Active Problem List Diagnosis Date Noted Erectile dysfunction 11/12/2017 Right inguinal hernia 05/26/2013 Benign essential hypertension 11/08/2005 Mixed hyperlipidemia 11/08/2005 Past Surgical History: Procedure Laterality Date HERNIA REPAIR Right 09/18/2013 PROCEDURE: HISTORICAL HERNIA REPAIR/ING MULTIPLE TOOTH EXTRACTIONS PROCEDURE: HISTORICAL DENTAL EXTRACTION SOCIAL HISTORY: Social History Tobacco Use Smoking status: Former Current packs/day: 0.00 Types: Cigarettes Quit date: 07/30/1984 Years since quittin.1 Smokeless tobacco: Never Substance Use Topics Alcohol use: Yes FAMILY HISTORY: Family History Problem Relation Name Age of Onset Hypertension Mother 2006, age 92 Other (Other: coronary bypass) Father , age 88 Cataracts Sister Blindness Neg Hx Glaucoma Neg Hx Macular degeneration Neg Hx Strabismus Neg Hx Family Status Relation Name Status Mother Father Sister (Not Specified) Neg Hx (Not Specified) No partnership data on file MEDICATIONS DISCONTINUED/REORDERED: Medications Discontinued During This Encounter Medication Reason lisinopriL (PRINIVIL,ZESTRIL) 30 mg tablet atorvastatin (LIPITOR) 10 mg tablet Reorder hydroCHLOROthiazide (HYDRODIURIL) 25 mg tablet Reorder cloNIDine (CATAPRES) 0.1 mg tablet Reorder ACTIVE MEDICATIONS: Outpatient Medications Marked as Taking for the 09/02/24 encounter (Office Visit) with RORY Lowe Medication Sig Dispense Refill atorvastatin (LIPITOR) 10 mg tablet Take 1 tablet (10 mg total) by mouth at bedtime. 90 tablet 1 cloNIDine (CATAPRES) 0.1 mg tablet Take 1 tablet (0.1 mg total) by mouth 1 (one) time each day. 90 tablet 1 hydroCHLOROthiazide (HYDRODIURIL) 25 mg tablet Take 1 tablet (25 mg total) by mouth 1 (one) time each day. 90 tablet 1 sildenafiL (VIAGRA) 50 mg tablet Take 1 tab by mouth one hour prior to sexual activity . Only take one tablet in 24 hours [DISCONTINUED] atorvastatin (LIPITOR) 10 mg tablet Take 1 Tablet by mouth at bedtime. [DISCONTINUED] cloNIDine (CATAPRES) 0.1 mg tablet Take 1 Tablet by mouth daily. [DISCONTINUED] hydroCHLOROthiazide (HYDRODIURIL) 25 mg tablet Take 1 Tablet by mouth daily. [DISCONTINUED] lisinopriL (PRINIVIL,ZESTRIL) 30 mg tablet Take 1 tablet (30 mg total) by mouth 1 (one) time each day. 30 tablet 0 ALLERGIES: No Known Allergies PHYSICAL EXAM: Visit Vitals BP (!) 164/82 Comment: a Pulse 80 Temp 36.3 ??C (97.4 ??F) (Temporal) Ht 1.702 m (67.01 ) Wt 74.4 kg (164 lb 1.6 oz) SpO2 98% BMI 25.70 kg/m?? Smoking Status Former BSA 1.86 m?? APPEARANCE: Alert and in no acute distress HEART: RRR with normal S1 and S2, no murmurs, no gallops LUNG: clear to auscultation, no wheezing, rales, or rhonchi. Able to talk in full complete sentences NEURO: Awake, alert and oriented x 3. No focal neurological deficits LABS: Lab Results Component Value Date CHOL 177 01/23/2024 TRIG 48 01/23/2024 HDL 57 01/23/2024 No results found for: GLUCOSE , CALCIUM , NA , K , CO2 , CL , BUN , CREATININE IMPRESSION: 1. Benign essential hypertension 2. Mixed hyperlipidemia PLAN: Patient presents for follow up. Hypertension: Blood pressure today remains elevated. At this time will continue clonidine 0.1 mg, hydrochlorothiazide 25 mg and increase lisinopril to 40 mg daily. Patient to follow up 09/24/2024. Hyperlipidemia: Lipid panel ordered. Continue on atorvastatin 10 mg nightly. Patient to return 09/24/2024 for pre-op with PCP. All questions and concerns were addressed. Michael Lagunas verbalizes understanding and agrees withthis treatment plan. Patient was reminded to call or return to the office if any new or existing problems arise. Orders Placed This Encounter Procedures Lipid panel with reflex to direct LDL Basic metabolic panel None RORY Lowe on 09/02/2024 at 12:21 PM EST Today's documentation was made using voice recognition software.This note may contain grammatical errors secondary to this software. documented in this encounter Plan of Treatment Upcoming Encounters Date Type Department Care Team (Late st Contact Info) Description 10/07/2024 10:00 AM EDT Consult Adult Medicine [address] [phone] Antolin Barlow MD [address] [place] [phone] 03/31/2025 11:30 AM EDT Office Visit Adult [facility] [address] [place] [phone] Antolin Barlow MD [address] [place] [address] documented as of this encounter Results * Basic metabolic panel (09/15/2024 9:59 AM EST) Sodium 133 133 - 145 mmol/L LAB CHEMISTRY METHOD 09/15/2024 12:33 PM [facility] Potassium 4.5 3.5 - 5.5 mmol/L LAB CHEMISTRY METHOD 09/15/2024 12:33 PM [facility] Chloride 98 96 - 110 mmol/L LAB CHEMISTRY METHOD 09/15/2024 12:33 PM [facility] CO2 31 21 - 32 mmol/L LAB CHEMISTRY METHOD 09/15/2024 12:33 PM [facility] Anion Gap 4 3 - 11 LAB CHEMISTRY METHOD 09/15/2024 12:33 PM [facility] Glucose 91 70 - 100 mg/dL LAB CHEMISTRY METHOD 09/15/2024 12:33 PM [facility] BUN 15 5 - 25 mg/dL LAB CHEMISTRY METHOD 09/15/2024 12:33 PM [facility] Creatinine 0.88 0.70 - 1.30 mg/dL LAB CHEMISTRY METHOD 09/15/2024 12:33 PM [facility] eGFR 86 >=60 mL/min/1. 73m2 LAB CHEMISTRY METHOD 09/15/2024 12:33 PM [facility] Comment:Calculation based on the??Chronic Kidney Disease Epidemiology Collaboration (CKD-EPI) equation refit??without adjustment for race. BUN/Creatinine Ratio 17.0 LAB CHEMISTRY METHOD 09/15/2024 12:33 PM [facility] Calcium 9.6 8.5 - 10.5 mg/dL LAB CHEMISTRY METHOD 09/15/2024 12:33 PM [facility] Blood Venous blood specimen / Unknown Venipuncture / Unknown 09/15/2024 9:59 AM EST 09/15/2024 9:59 AM EST Ella VALADEZ LAB BLOOD ORDERABLES Fi nal Result [facility] [address] [place] [address], * Lipid panel with reflex to direct LDL (09/15/2024 9:59 AM EST) Cholesterol 142 0 - 200 mg/dL LAB CHEMISTRY METHOD 09/15/2024 12:33 PM [facility] Triglycerides 61 0 - 150 mg/dL LAB CHEMISTRY METHOD 09/15/2024 12:33 PM [facility] HDL 57 >=40 mg/dL LAB CHEMISTRY METHOD 09/15/2024 12:33 PM [facility] LDL Calculated 73 0 - 100 mg/dL LAB CHEMISTRY METHOD 09/15/2024 12:33 PM [facility] VLDL Cholesterol Dave 12.2 mg/dL LAB CHEMISTRY METHOD 09/15/2024 12:33 PM [facility] Non HDL Chol. (LDL+VLDL) 85 <145 mg/dL LAB CHEMISTRY METHOD 09/15/2024 12:33 PM [facility] Chol/HDL Ratio 2.5 0.0 - 4.4 LAB CHEMISTRY METHOD 09/15/2024 12:33 PM [facility] Blood Venous blood specimen / Unknown Venipuncture / Unknown 09/15/2024 9:59 AM EST 09/15/2024 9:59 AM EST us Ella VALADEZ LAB BLOOD ORDERABLES Fi nal Result [facility] [address] [place] [address], documented in this encounter Visit Diagnoses Diagnosis Benign essential hypertension- Primary Essential hypertension, benign Mixed hyperlipidemia documented in this encounter Discontinued Medications Medication Sig Discontinue Reason Start Date End Da te lisinopriL (PRINIVIL,ZESTRIL) 30 mg tablet Take 1 tablet (30 mg total) by mouth 1 (one) time each day. 08/06/2024 09/02/2024 atorvastatin (LIPITOR) 10 mg tablet Take 1 Tablet by mouth at bedtime. Reorder 01/22/2024 09/02/2024 hydroCHLOROthiazide (HYDRODIURIL) 25 mg tablet Take 1 Tablet by mouth daily. Reorder 01/22/2024 09/02/2024 cloNIDine (CATAPRES) 0.1 mg tablet Take 1 Tablet by mouth daily. Reorder 01/22/2024 09/02/2024 documented as of this encounter Care Teams Sales Service Supervisor Relationship Specialty Start Date End Date Antolin Barlow MD [address] [place] [phone] PCP - General Internal Medicine 04/23/20 documented as of this encounter
--- NOTE | 2024-10-09 14:51 | HO.ANESPROP2 ---
Documented by User: Lola Pacheco NP 10/09/24 14:52 HPI - Anesthesia Eval Consult details Narrative: 84yo M for Left Cataract Extraction IOL Insertion Right eye 09/29/24: Midaz 2 PMFSH Past Medical History Medical History Mixed hyperlipidemia HTN (hypertension) Family History Family history of problems with anesthesia: No Surgical History Surgical History (Updated 10/07/24 @ 14:42 by Marianna Fernandes RN) Hx of right cataract extraction Hx of tooth extraction Hx of right inguinal hernia repair History of Problems with Anesthesia: No Social History Social History Patient Tobacco Use Status: Former Tobacco user Tobacco use type: Cigarette Use of substances other than those prescribed or required for medical reasons: No Spiritual Healthcare Practices: unknown Nondenominational Healthcare Practices: unknown Cultural Healthcare Practices: unknown Advance Directives: No (not on file-[facility] [place] Advance Directives on File: No Nutrition Risks: Surgical patient >75years Meds Allergies Allergy/AdvReac Type Severity Reaction Status Date / Time No Known Allergies Allergy Verified 09/29/24 09:49 Home Medications ?Medication ?Instructions ?Recorded ?Confirmed ?Last Taken ?Type aspirin 81 mg tablet,delayed 81 mg PO DAILY 09/23/24 09/29/24 Unknown History release atorvastatin 10 mg tablet 10 mg PO BEDTIME 09/23/24 09/29/24 Unknown History clonidine HCl 0.1 mg tablet 0.1 mg PO DAILY 09/23/24 09/29/24 Unknown History hydrochlorothiazide 25 mg tablet 25 mg PO DAILY 09/23/24 09/29/24 09/28/24 History lisinopril 40 mg tablet 40 mg PO DAILY 09/23/24 09/29/24 09/28/24 History sildenafil 50 mg tablet 50 mg PO DAILY PRN Sexual Activity 09/23/24 09/29/24 Unknown History Exam Height,Weight and Vital Signs: Height 5 ft 8 in Weight 72 kg Assessment and Plan Assessment Anesthesia Assessment: Chart Reviewed Final Anesthetic Review Family History of Problems with Anesthesia: No History of Problems with Anesthesia: No Documented by User: Sherry Marks MD 10/13/24 11:02 [facility] Past Medical History Medical History Mixed hyperlipidemia HTN (hypertension) Surgical History Surgical History (Updated 10/07/24 @ 14:42 by Marianna Fernandes RN) Hx of right cataract extraction Hx of tooth extraction Hx of right inguinal hernia repair Social History Social History Patient Tobacco Use Status: Former Tobacco user Tobacco use type: Cigarette Use of substances other than those prescribed or required for medical reasons: No Spiritual Healthcare Practices: unknown Nondenominational Healthcare Practices: unknown Cultural Healthcare Practices: unknown Advance Directives: No (not on file-[facility] [place] Advance Directives on File: No Nutrition Risks: Surgical patient >75years Meds Allergies Allergy/AdvReac Type Severity Reaction Status Date / Time No Known Allergies Allergy Verified 09/29/24 09:49 Home Medications ?Medication ?Instructions ?Recorded ?Confirmed ?Last Taken ?Type aspirin 81 mg tablet,delayed 81 mg PO DAILY 09/23/24 09/29/24 Unknown History release atorvastatin 10 mg tablet 10 mg PO BEDTIME 09/23/24 09/29/24 Unknown History clonidine HCl 0.1 mg tablet 0.1 mg PO DAILY 09/23/24 09/29/24 Unknown History hydrochlorothiazide 25 mg tablet 25 mg PO DAILY 09/23/24 09/29/24 09/28/24 History lisinopril 40 mg tablet 40 mg PO DAILY 09/23/24 09/29/24 09/28/24 History sildenafil 50 mg tablet 50 mg PO DAILY PRN Sexual Activity 09/23/24 09/29/24 Unknown History Exam Airway Mallampati Class: II TM Dist: >3cm Neck ROM: Full Heart: rrr Lungs: cta Assessment and Plan Assessment Anesthesia Assessment: Anesthesia Plan Discussed Final Anesthetic Review NPO: Yes ASA Class: III Final Preanesthetic Review: No Changes in Pt Med Stat, Meds/Allgs Chart Reviewed and Consent Obtained/Reviewed Patient Risk: Low Procedure Risk: Low Anesthetic Plan Anesthetic Plan: MAC: Disposition: Standard PACU
[2024-10-13] MEDS: Lactated Ringers 500 ML 50 ML IV (10:41)
[2024-10-13] MEDS: Tetracaine HCl/PF 0.5% Oph Sol 4 ML DROPS 1 DROP EYE-LEFT (10:41)
[2024-10-13] MEDS: Phenylephrine HCL 2.5% Oph SoL 2 ML BOTTLE 1 DROP EYE-LEFT ×3 (10:42→10:49)
[2024-10-13] MEDS: Tropicamide 1 % Ophth Sol 3 ML BTL 1 DROP EYE-LEFT ×3 (10:42→10:49)
[2024-10-13] MEDS: Ketorolac Tromethamine 0.5% Op 5 ML DROPS 1 DROP EYE-LEFT ×3 (10:42→10:49)
[2024-10-13] MEDS: Cyclopentolate 1 % Ophth Sol 2 ML DRPBTL 1 DROP EYE-LEFT ×3 (10:42→10:49)
[2024-10-13 10:55] VITALS: BP 159/88; PULSE 75; RESP 18; TEMP 36.6; O2SAT 97
--- NOTE | 2024-10-13 11:41 | MHC.SHP ---
Pre-Procedural Eval Section A - 24 Hr Update-Section A only Date of Service: 10/13/24 The patient is an INPATIENT: No Changes since office visit: No Cold of Flu in the past 2 weeks, No New Medical Problems, No Changes in Medication and No Patient answered all questions The patient has been examined within 24 hours of the surgical procedure. The History & Physical has been completed within 30 days and I have reviewed it.: Yes Section B - Complete if H&P > 30 days Chief Complaint: Age-related nuclear cataract, left eye Allergies: Allergies Allergy/AdvReac Type Severity Reaction Status Date / Time No Known Allergies Allergy Verified 09/29/24 09:49 Plan Diagnosis/Plan: Unchanged I have reviewed the history and physical and performed a pertinent physical examination on my patient. No changes have occurred unless specified. Time Spent With Patient Time: Total time managing care of this patient today ____ minutes.
--- NOTE | 2024-10-13 11:41 | HO.PNOPHT ---
Ophthalmology Procedure Procedure Date of Service: 10/13/24 Ophthalmology Viscoelastic: Healon Duet Dual Pack Pro Ophthalmology Lenses: IOL Acrysof MP - MA60AC (21.5) Procedure Notes: PREOPERATIVE DIAGNOSIS: Decreased visual acuity left eye secondary to cataract POSTOPERATIVE DIAGNOSIS: Same PROCEDURE: Left cataract extraction with intraocular lens insertion SURGEON: Clarke Hope M.D. ANESTHESIA: Topical/MAC ESTIMATED BLOOD LOSS: None COMPLICATIONS: None After obtaining informed consent, the patient was brought to the operation room suite and placed in the supine position. After adequate sedation per anesthesia, topical drops of Tetracaine were given to the left eye. The eye was then prepped and draped in the usual sterile fashion. The operating room microscope was then positioned over the operative eye and a lid speculum placed. A paracentesis was created. Viscoelastic was then instilled into the anterior chamber. A three plane incision was then created temporally, utilizing a 2.85 mm keratome. Capsulotomy forceps were then utilized to create a circular tear capsulotomy. Hydrodissection and hydrodelineation were carried out until adequate mobilization of the nucleus occurred. Phacoemulsification was then utilized to remove the dense central nucleus followed by removal of the cortical material utilizing the automated aspiration irrigation unit. Viscoat elastic was instilled into the posterior capsular bag followed by placement of a posterior chamber intraocular lens without difficulty. The residual Viscoat elastic was then removed utilizing the automated IA machine. The wound was check and found to be watertight. The patient tolerated the procedure well and the lid speculum was removed. Intracameral injection of Vigamox 0.1 mL followed by a subtenon injection of Kenalog-40 0.2 mL were administered. The patient will be seen in the a.m.
[2024-10-13 12:04] VITALS: BP 144/68; PULSE 78; RESP 16; TEMP 36.4; O2SAT 100
== END 2024-10-13 12:25 | disposition home or self-care (01) ==
PROVIDERS: PCP Internal Medicine; Visit Provider Ophthalmology
PROC: (CPT 66985; principal; 2024-10-13 12:30)
DX: H25.12 Age-related nuclear cataract, left eye (principal); H52.4 Presbyopia; H18.413 Arcus senilis, bilateral; H11.153 Pinguecula, bilateral; H35.09 Other intraretinal microvascular abnormalities; I10 Essential (primary) hypertension; E78.2 Mixed hyperlipidemia; Z79.82 Long term (current) use of aspirin; Z79.899 Other long term (current) drug therapy; Z87.891 Personal history of nicotine dependence
CPT/HCPCS: 66984; J2250; J3301; V2630